=== PATIENT | female | born 1965 | race Caucasian/White ===

== ENCOUNTER 2017-08-22 08:41 | Day surgery (SDC) | payer OTHER ==
[~2017-08-22] VITALS: Ht 157.5 cm; Wt 63.3 kg
[2017-08-22 09:20] VITALS: Ht 157.5 cm; Wt 63.3 kg
[2017-08-22] MEDS ORDERED: BENAZEPRIL (09:24)
[2017-08-22] MEDS ORDERED: SIME80TA53 PO (09:24)
[2017-08-22 10:39] VITALS: BP 166/88; PULSE 87; RESP 16
--- NOTE | 2017-08-22 11:32 | OPPN ---
Date/Time of Note Date/Time of Note DATE: 08/22/17 TIME: 11:31 Operative Report Preoperative Diagnosis Screening Postoperative Diagnosis Rectal polyp was removed Internal hemorrhoids Operation/Procedure Performed Colonoscopy and biopsy Surgeon see signature line financial legal assistant None Anesthesia: moderate sedation Estimated blood loss: none Transfusion Required none Specimen Rectal polyp biopsy Grafts/Implants none Complications none ELTON CRUZ MD Aug 22, 2017 11:32
[2017-08-22] MEDS ORDERED: FENTAnyl 50 MCG/ML VIAL ONE (11:34)
[2017-08-22] MEDS ORDERED: MIDAZOLAM 1 MG/ML 2 ML INJ ONE ×2 (11:34)
[2017-08-22 12:00] VITALS: BP 138/91; PULSE 94; RESP 22
--- NOTE | 2017-08-22 12:32 | GILP ---
DATE OF PROCEDURE: NAME OF PROCEDURE: Colonoscopy and biopsy. SURGEON: Elton Garcia MD PREOPERATIVE DIAGNOSIS: Screening colonoscopy. POSTOPERATIVE DIAGNOSES 1. Colonoscopy all the way to the cecum. 2. Small rectal polyp was removed using the biopsy forceps. 3. Internal hemorrhoids. INDICATION FOR THE PROCEDURE: Ms. Pat Thao is a 51-year-old female patient who was scheduled for screening colonoscopy. The procedure and possible complications were well explained to the patient. The patient understood and consented to the procedure. DESCRIPTION OF PROCEDURE: Under the influence of fentanyl and Versed, the colonoscope was carefully introduced in the rectum and under direct vision it was advanced all the way to the cecum. FINDINGS: The patient had a small rectal polyp and it was removed using biopsy forceps. She had in ternal hemorrhoids. She tolerated the procedure very well and there was no complication from the procedure. At the end of the procedure, she was awake with stable vital signs and she was discharged home to the care of h er family. IMPRESSION: Please see postoperative diagnosis. PLAN: Next screening colonoscopy in 10 years. Dictated By: ELTON MCCLELLAN/SAYRA Conf#: [id number] DID#: [id number]
== END 2017-08-22 11:39 | disposition home or self-care (01) ==
LOC: GIL 08:41
PROVIDERS: ATTEND Internal Medicine Gastroenterology
DX: Z12.11 Encounter for screening for malignant neoplasm of colon (principal); K64.8 Other hemorrhoids; K62.1 Rectal polyp; I10 Essential (primary) hypertension
CPT/HCPCS: 45380; 88305; J2250; J3010; Z7610